=== PATIENT | male | born 1940 | race Caucasian/White ===

== ENCOUNTER 2016-07-15 08:06 | Inpatient (IN) | payer MEDICARE, OTHER ==
[~2016-07-15 08:06] MED LIST: ADULT ASPIRIN81 MG; ASPIR-LOW81 M1 PO; ATACAND HCT 16/1 TAB; BL MAXEPA CAPSU1 CAP; CARVEDILOL6.25 MG PO; COMBIVENT1 PUFF INH; COREG25 M1 PO; COUMADIN PO; COUMADIN4 MG PO; CPAP; FLECAINIDE ACET50 M1 PO; FLOMAX; FLOMAX0.4 MG; GLUCOSAMINE &1 EAC1 PO; GLUCOSAMINE750 MG; HYDROCHLOROTHIA25 MG PO; ICAPS PLUS; LIPITOR10 MG; METOPROLOL TART50 MG PO; NORVASC5 M2 PO; OMEGA 3 1,0001 EACH PO; OMEGA-3 PO; OXYGEN; PACERONE200 MG PO; PREDNISONE20 MG PO; PRINIVIL20 M1 PO; TOPROL XL50 MG; VISION FORMULA PO; VISION VITAMIN1 EAC1 PO; XARELTO20 M1 PO; ZOCOR20 M1 PO; [UNRECOGNIZED DRUG - OTHER] PO
[2016-07-15 10:27] LABS: PROTHROMBIN TIME 11.2 SECONDS (9.0-13.6)
[2016-07-15] MEDS ORDERED: ULTRAM50 M1 PO (11:39)
[2016-07-15] MEDS ORDERED: CELEBREX200 M1 PO (11:39)
[2016-07-16] MEDS ORDERED: HYDROCODON-ACE1 EA16 PO (13:50)
[2016-07-16] MEDS ORDERED: ZANAFLEX4 M2 PO (13:51)
[2016-07-16] MEDS ORDERED: SENOKOT-S TABL1 EACH PO (13:52)
== END 2016-07-16 14:20 | DRG 520 ==
LOC: SHSC 08:06 → ORE 12:00 → PACU 15:05 → 5EB 16:09
PROVIDERS: Anesthesiology; ADMIT Orthopaedic Surgery
PROC: 0SB20ZZ Excision of Lumbar Vertebral Disc, Open Approach (ICD-10-PCS; principal; 2016-07-15)
PROC: 01NB0ZZ Release Lumbar Nerve, Open Approach (ICD-10-PCS; 2016-07-15)
PROC: 0QB00ZZ Excision of Lumbar Vertebra, Open Approach (ICD-10-PCS; 2016-07-15)
PROC: 5A09357 Assistance with Respiratory Ventilation, Less than 24 Consecutive Hours, Continuous Positive Airway Pressure (ICD-10-PCS; 2016-07-15)
DX: M47.26 Other spondylosis with radiculopathy, lumbar region (principal); E66.01 Morbid (severe) obesity due to excess calories; I45.10 Unspecified right bundle-branch block; I48.91 Unspecified atrial fibrillation; M48.06 Spinal stenosis, lumbar region; F17.210 Nicotine dependence, cigarettes, uncomplicated; Z68.39 Body mass index [BMI] 39.0-39.9, adult; M51.16 Intervertebral disc disorders with radiculopathy, lumbar region; Z98.1 Arthrodesis status; E78.5 Hyperlipidemia, unspecified; I10 Essential (primary) hypertension; G47.30 Sleep apnea, unspecified; K21.9 Gastro-esophageal reflux disease without esophagitis; M19.90 Unspecified osteoarthritis, unspecified site; F17.290 Nicotine dependence, other tobacco product, uncomplicated; Z79.82 Long term (current) use of aspirin; Z79.01 Long term (current) use of anticoagulants; Z23 Encounter for immunization
CPT/HCPCS: G0009; J0690; J1170; J3010